=== PATIENT | female | born 1985 | race Caucasian/White ===

== ENCOUNTER → 2019-01-05 | Day surgery (SDC) | payer OTHER ==
[~2019-01-05] VITALS: Ht 167.6 cm; Wt 83.0 kg
[~2019-01-05] MED LIST: ADVIL MIGRAINE200 MG PO; APRI 0.15 MG-0.1 TAB PO; CLARITIN 1010 MG/TAB PO; DESYREL 100MG100 MG PO; FLONASE NASAL S16 GM NS; FOLIC ACID 11 MG/TA1 PO; INDERAL LA 60MG60 MG PO; METHOTREXA2.5 MG/TAB PO; PROTONIX 40MG T40 MG PO; SINGULAIR 110 MG/TAB PO; SYNTHROID 0.0.025 MG PO
[2019-01-05 14:28] VITALS: BP 118/95; PULSE 94; TEMP 99
[2019-01-05 15:50] VITALS: BP 121/90; PULSE 82
--- NOTE | 2019-01-05 15:50 | NUR ---
Patient returns to GI bay 3 per cart and transfers from cart to recliner with two person assist. IV fluids infusing and family in room. Call light in reach.
[2019-01-05 16:05] VITALS: BP 114/80; PULSE 88
--- NOTE | 2019-01-05 16:05 | NUR ---
Resting and family in room. IV fluids infusing.
[2019-01-05 16:20] VITALS: BP 123/87; PULSE 78
--- NOTE | 2019-01-05 16:20 | NUR ---
Zofran 4mg IV given for nausea. Lights dimmed and encouraged to rest. Family in room.
[2019-01-05 16:35] VITALS: BP 125/90; PULSE 83
--- NOTE | 2019-01-05 16:35 | NUR ---
Patient that nausea has subsided and is eating muffin and drinking juice. IV discontinued.
--- NOTE | 2019-01-05 16:40 | NUR ---
Patient dresses self and IV discontinued.
--- NOTE | 2019-01-05 16:45 | NUR ---
Dismissal instructions given and patient voices understanding of home cares and follow up as needed.
--- NOTE | 2019-01-05 16:51 | NUR ---
Patient dismissed to home per private vehicle driven by spouse and taken to the front door per wheelchair and assisted into car by RN with instructions in hand.
== END ==
LOC: SDCO 13:15
DX: R10.13 Epigastric pain (principal); R11.0 Nausea; R93.5 Abnormal findings on diagnostic imaging of other abdominal regions, including retroperitoneum; R10.11 Right upper quadrant pain; K82.4 Cholesterolosis of gallbladder; Z86.19 Personal history of other infectious and parasitic diseases; M06.9 Rheumatoid arthritis, unspecified; Z79.899 Other long term (current) drug therapy; F41.9 Anxiety disorder, unspecified; F32.9 Major depressive disorder, single episode, unspecified; E07.9 Disorder of thyroid, unspecified; I10 Essential (primary) hypertension
CPT/HCPCS: J2250; J2405; J3010; J7030